=== PATIENT | female | born 1945 | race Caucasian/White ===

== ENCOUNTER 2021-08-17 17:39 | Emergency (ER) | payer OTHER, BC ==
[2021-08-17 18:11] VITALS: BMI 25.7
[2021-08-17] MEDS ORDERED: LACTATED RINGERS SOLUTION 1000 ML INFUS.BAG IV ONE (18:46)
[2021-08-17 18:57] LABS: VENOUS PCO2 37.6 mmHg (38-52); VENOUS PH 7.216 (7.310-7.410)
[2021-08-17 19:12] LABS: CHLORIDE 103 mmol/L (98-107); SODIUM 135 mmol/L (136-145)
[2021-08-17 19:16] LABS: CALCIUM 9.3 mg/dL (8.5-10.1)
[2021-08-17 19:17] LABS: ANION GAP 14 MMOL/L (8-16); BLOOD UREA NITROGEN 71.3 mg/dL (7-18); CO2 18 mmol/L (21-32); MAGNESIUM 2.2 mg/dL (1.8-2.4)
[2021-08-17 19:20] LABS: SGOT/AST 34 U/L (15-37); SGPT/ALT 17 U/L (13-61)
[2021-08-17 19:21] LABS: BILIRUBIN,TOTAL 1.6 mg/dL (0.2-1)
[2021-08-17 19:22] LABS: ALK PHOS 82 U/L (45-117)
[2021-08-17 19:38] LABS: HEMATOCRIT 27.3 % (32.4-45.2); HEMOGLOBIN 9.3 GM/dL (10.7-15.3); MCH 31.9 pg (25.7-33.7); MEAN PLT VOLUME 9.7 fl (7.5-11.1); PLATELET COUNT 112 10^3/uL (134-434); RDW 15.5 % (11.6-15.6); WHITE BLOOD COUNT 8.7 K/mm3 (4.0-10.0)
[2021-08-17 19:41] LABS: CREATININE 7.9 mg/dL (0.55-1.3); GLUCOSE,RANDOM 470 mg/dL (74-106)
[2021-08-17] MEDS ORDERED: ONDANSETRON 4 MG/2 ML VIAL IVPUSH ONE (20:01)
[2021-08-17] MEDS ORDERED: ONDANSETRON 4 MG/2 ML VIAL ONE (20:07)
[2021-08-17 20:08] LABS: CHLORIDE 103 mmol/L (98-107); SODIUM 136 mmol/L (136-145)
[2021-08-17 20:11] LABS: ANION GAP 15 MMOL/L (8-16); BLOOD UREA NITROGEN 70.6 mg/dL (7-18); CALCIUM 9.4 mg/dL (8.5-10.1); CO2 18 mmol/L (21-32)
[2021-08-17 20:21] LABS: CREATININE 7.8 mg/dL (0.55-1.3); GLUCOSE,RANDOM 484 mg/dL (74-106)
[2021-08-17 20:48] LABS: ANISOCYTOSIS 1+; OVALOCYTE 1+; PLATELET ESTIMATE DECREASED
[2021-08-17] MEDS ORDERED: NICARDIPINE 25 MG in DEXTROSE 5%-WATER - 240 ML IVPB SCH (21:15)
[2021-08-17] MEDS ORDERED: ETOMIDATE 20 MG/10 ML AMPUL IVPUSH ONE ×2 (21:34→21:48)
[2021-08-17] MEDS ORDERED: PROPOFOL 1,000,000 MCG/100 ML VIAL ONE (21:45)
[2021-08-17] MEDS ORDERED: ROCURONIUM BROMIDE 50 MG/5 ML VIAL IVPUSH ONE (21:49)
[2021-08-17] MEDS ORDERED: PROPOFOL 1,000,000 MCG/100 ML VIAL IVPB SCH (22:00)
[2021-08-17 22:26] VITALS: PULSE 95; TEMP 97.6
[2021-08-17 22:46] VITALS: BP 253/94
== END 2021-08-17 22:00 | disposition short-term general hospital (02) ==
LOC: JER 17:39
PROC: 3E033GC Introduction of Other Therapeutic Substance into Peripheral Vein, Percutaneous Approach (ICD-10-PCS; principal; 2021-08-17)
DX: I61.9 Nontraumatic intracerebral hemorrhage, unspecified (principal); R41.82 Altered mental status, unspecified; N19 Unspecified kidney failure; E87.2 Acidosis
CPT/HCPCS: 36415; 70450-TC; 71045-TC-FY; 72125-TC; 74176-TC; 80048; 80053; 82010; 82803; 83735; 84484; 85025; 86850; 86900; 86901; 93005; 93010; 99291; 99292; C9803-CS; U0003; U0005